=== PATIENT | female | born 1955 | race African-American/Black ===

== ENCOUNTER 2016-08-03 14:19 | Emergency (ER) | payer OTHER ==
[~2016-08-03] VITALS: Ht 170.2 cm; Wt 59.0 kg
[~2016-08-03 14:19] MED LIST: ALPR1TAB6; ARIP10TA15; CELE400C10; CHOL10002 PO; DICL75TA; ESOM40CA47; ESZO3TAB; FERR325T72 PO; HYDR-2666 PO; LEVO150T5; LEVO500T38 PO; LIDO700A4 TD; LISI40TA; TRAZ100T12
[2016-08-03] MEDS ORDERED: IV NORMAL SALINE 1000ML BAG 1,000 ML IV SCH (15:14)
[2016-08-03] MEDS ORDERED: ONDANSETRON PF 4 MG/2 ML VIAL. IV ONE (15:15)
[2016-08-03] MEDS ORDERED: FAMOTIDINE 20 MG/2 ML VIAL IVP ONE (15:15)
[2016-08-03] MEDS ORDERED: CONTRAST GIVEN MC PRN (15:45)
[2016-08-03] MEDS ORDERED: IOHEXOL 300 MG/ML 75 ML VIAL IV ONE (15:45)
--- NOTE | 2016-08-03 15:52 | PHYS DOC ---
Past Medical History Past Medical History: Arthritis, GERD, Hypertension, Other Additional Past Medical Histor: ULCERS, PERFRATED BOWEL; RA Past Surgical History: Colectomy Additional Past Surgical Histo: COLON RESCETION Smoking: Less than 1pk/day Alcohol Use: None Drug Use: None Adult General Chief Complaint Chief Complaint: MEDICATION REFILL HPI HPI Patient is a 60 year old female who presents with epigastric abdominal pain for 2 weeks. She reports nausea without vomiting and subjective fevers. She denies change in her bowels or urinary symptoms. She has a history of a perforated ulcer. She states that her current pain feels different from when she had the ulcer. She initially presented to the emergency department for refill of for [place], which she takes for her rheumatoid arthritis. She has been taking this for her abdominal pain without relief over the last 2 weeks. She has not been evaluated for the abdominal pain since its onset. Her PCP is Dr. Nina Dickson. Review of Systems Review of Systems Constitutional: Denies fever or chills. [] Eyes: Denies change in visual acuity, redness, or eye pain. [] HENT: Denies ear pain, nasal congestion or sore throat. [] Respiratory: Denies cough or shortness of breath. [] Cardiovascular: Denies chest pain, palpitations or edema. [] GI: Denies vomiting, bloody stools or diarrhea. Reports epigastric pain and nausea. : Denies dysuria, hematuria or urinary frequency. [] Musculoskeletal: Denies back pain or joint pain. [] Integument: Denies rash or skin lesions. [] Neurologic: Denies headache, focal weakness or sensory changes. [] Endocrine: Denies polyuria or polydipsia. [] Psych: Denies anxiety or depression. [] All systems reviewed and negative unless otherwise stated in the HPI. Current Medications Current Medications Current Medications Medications (Trade) Dose Ordered Sig/Yessica Start Time Stop Time Status Last Admin Dose Admin Famotidine (Pepcid) 20 mg 1X ONCE 08/03/16 15:15 08/03/16 15:22 DC 08/03/16 16:01 20 MG Info (Do NOT chart on this entry -- for MONITORING) 1 each PRN DAILY PRN 08/03/16 15:45 08/05/16 15:44 Iohexol (Omnipaque 300 Mg/ml) 75 ml 1X ONCE 08/03/16 15:45 08/03/16 15:46 DC Morphine Sulfate 4 mg 4 mg PRN Q15MIN PRN 08/03/16 15:15 08/04/16 15:14 08/03/16 17:35 4 MG Ondansetron HCl (Zofran) 4 mg 1X ONCE 08/03/16 15:15 08/03/16 15:22 DC 08/03/16 16:01 4 MG Potassium Chloride (Klor-Con) 40 meq 1X ONCE 08/03/16 17:00 08/03/16 17:01 DC 08/03/16 17:34 40 MEQ Sodium Chloride (Iv Sodium Chloride 0.9% 1000ml Bag) 1,000 ml @ 100 mls/hr Q10H 08/03/16 15:14 08/04/16 01:13 08/03/16 16:01 100 MLS/HR Allergies Allergies Allergies Coded Allergies Type Severity Reaction Last Updated Verified No Known Drug Allergies 12/25/14 No Physical Exam Physical Exam Constitutional: Well developed, well nourished, no acute distress, non-toxic appearance. [] HENT: Normocephalic, atraumatic, oropharynx moist. [] Eyes: PERRLA, EOMI, conjunctiva normal, no discharge. [] Neck: Normal range of motion, no tenderness, supple, no stridor. [] Cardiovascular: Heart rate regular rhythm, no murmur. [] Lungs & Thorax: Bilateral breath sounds clear to auscultation without wheezes, rales, or rhonchi. [] Abdomen: Bowel sounds normal, soft, epigastric tenderness, no masses, no pulsatile masses. [] Skin: Warm, dry, no erythema, no rash. [] Extremities: No tenderness, ROM intact, no edema. Distal pulses equal bilaterally. [] Neurologic: Alert and oriented X 3, normal motor function, normal sensory function, no focal deficits noted. [] Psychologic: Affect normal, judgement normal, mood normal. [] Current Patient Data Vital Signs Vital Signs Date Time Temp Pulse Resp B/P Pulse Ox O2 Delivery O2 Flow Rate FiO2 08/03/16 17:21 58 18 196/91 95 08/03/16 14:50 98.5 Room Air 98.5 Lab Values Laboratory Tests Test 08/03/16 16:00 08/03/16 16:40 White Blood Count 10.1x10^3/uL (4.0-11.0) Red Blood Count 4.31x10^6/uL (3.50-5.40) Hemoglobin 9.7g/dL (12.0-15.5) L Hematocrit 31.0% (36.0-47.0) L Mean Corpuscular Volume 72fL (79-100) L Mean Corpuscular Hemoglobin 23pg (25-35) L Mean Corpuscular Hemoglobin Concent 31g/dL (31-37) Red Cell Distribution Width 18.3% (11.5-14.5) H Platelet Count 360x10^3/uL (140-400) Neutrophils (%) (Auto) 69% (31-73) Lymphocytes (%) (Auto) 21% (24-48) L Monocytes (%) (Auto) 7% (0-9) Eosinophils (%) (Auto) 1% (0-3) Basophils (%) (Auto) 1% (0-3) Neutrophils # (Auto) 7.0x10^3uL (1.8-7.7) Lymphocytes # (Auto) 2.1x10^3/uL (1.0-4.8) Monocytes # (Auto) 0.7x10^3/uL (0.0-1.1) Eosinophils # (Auto) 0.1x10^3/uL (0.0-0.7) Basophils # (Auto) 0.1x10^3/uL (0.0-0.2) Platelet Estimate Adequate (ADEQUATE) Polychromasia Slight Hypochromasia Mod Anisocytosis Slight Microcytosis Mod Schistocytes Few Sodium Level 135mmol/L (136-145) L Potassium Level 2.9mmol/L (3.5-5.1) *L Chloride Level 97mmol/L (98-107) L Carbon Dioxide Level 28mmol/L (21-32) Anion Gap 10 (6-14) Blood Urea Nitrogen 9mg/dL (7-20) Creatinine 0.9mg/dL (0.6-1.0) Estimated GFR (Cockcroft-Gault) 77.8 BUN/Creatinine Ratio 10 (6-20) Glucose Level 96mg/dL (70-99) Calcium Level 9.8mg/dL (8.5-10.1) Total Bilirubin 0.4mg/dL (0.2-1.0) Aspartate Amino Transferase (AST) 8U/L (15-37) L Alanine Aminotransferase (ALT) 9U/L (14-59) L Alkaline Phosphatase 65U/L (46-116) Creatine Kinase 202U/L (26-192) H Creatine Kinase MB (Mass) 1.3ng/mL (0.0-3.6) Creatine Kinase MB Relative Index 0.6% (0-4) Troponin I Quantitative < 0.017ng/mL (0.000-0.055) Total Protein 8.2g/dL (6.4-8.2) Albumin 4.4g/dL (3.4-5.0) Albumin/Globulin Ratio 1.2 (1.0-1.7) Lipase 139U/L (73-393) Urine Collection Type Void Urine Color Yellow Urine Clarity Clear Urine pH 6.5 Urine Specific [place] 1.010 Urine Protein Negativemg/dL (NEG-TRACE) Urine Glucose (UA) Negativemg/dL (NEG) Urine Ketones (Stick) Negativemg/dL (NEG) Urine Blood Negative (NEG) Urine Nitrite Negative (NEG) Urine Bilirubin Negative (NEG) Urine Urobilinogen Dipstick 0.2mg/dL (0.2 mg/dL) Urine Leukocyte Esterase Small (NEG) Urine RBC 0/HPF (0-2) Urine WBC Occ/HPF (0-4) Urine Squamous Epithelial Cells Few/LPF Urine Bacteria 0/HPF (0-FEW) Urine Mucus Mod/LPF Laboratory Tests 08/03/16 16:00 Laboratory Tests 08/03/16 16:00 EKG EKG EKG at 1537. Heart rate 76 bpm. Normal sinus rhythm without acute ischemic changes or STEMI, as interpreted by Dr. Echevarria. Radiology/Procedures Radiology/Procedures REASON: epigastric pain, hx perforated ulcer PROCEDURE: ABD PELV W/ IV CONTRAST ONLY PROCEDURE CT of the abdomen and pelvis with contrast HISTORY Epigastric pain for 10 days TECHNIQUE After IV infusion of95 cc of Optiray-320, helical CT scanning of the abdomen and pelvis was performed.GI contrast was not administered. COMPARISON December 25, 2014 FINDINGS The liveer is homogeous in appearance and normal in size. The spleen is unremarkable and normal in size. The pancreas is homogeneous in appearance and no focal enlargement is seen. The gallbladder appears normal and no intra or extrahepatic biliary ductal dilatation is seen. No focal aneurysmal dilatation of the abdominal aorta is seen. No enlarged abdominal or pelvic lymphadenopathy is seen. No soft tissue mass is seen. No obstructive bowel pattern or bowel wall thickening or inflammatory change is seen. There is no free air. There is a trace of free fluid in the pelvis. There is mild pleural effusions bilaterally. There is minimal pericardial thickening versus a tiny pericardial effusion. Both kidneys are functioning and no hydronephrosis or renal mass or perinephric fluid collection is seen. The urinary bladder is collapsed and not well evaluated. A small caliber loop of bowel posterior to the cecum could be a normal appendix. The small left inguinal canal hernia now contains a knuckle of small bowel. No adrenal masses are seen. No osteolytic process is seen. IMPRESSION 1. Mild pleural effusions bilaterally. 2. Minimal pericardial thickening versus tiny pericardial effusion. 3. Small left inguinal canal hernia now contains a knuckle of small bowel. There is no CT evidence of incarceration or obstruction however clinical correlation suggested 4. Trace of free fluid the pelvis of uncertain etiology. Course & Med Decision Making Course & Med Decision Making Pertinent Labs and Imaging studies reviewed. (See chart for details) The patient is a 52-year-old female who presents with epigastric pain for 2 weeks. On exam, her abdomen is soft and nonsurgical with epigastric tenderness. Laboratory evaluation reveals hypokalemia without other significant abnormalities. CT of abdomen and pelvis shows a left inguinal hernia. On reexamination, the abdomen remains soft and nonsurgical with epigastric tenderness. There is no significant left inguinal hernia. The patient's pain improved with IV morphine, Zofran, Pepcid, and IV fluids. She was given oral potassium replacement for hypokalemia. She is discharged home with prescription for [place] and Protonix. She is given contact information for GI for follow-up. She is also instructed to follow-up with her PCP within the next week for recheck of her electrolytes. Return precautions were discussed. She verbalizes understanding and agrees with plan. Dragon Disclaimer Dragon Disclaimer This electronic medical record was generated, in whole or in part, using a voice recognition dictation system. Departure Departure Impression: Primary Impression: Abdominal pain Disposition: 01 HOME, SELF-CARE Condition: IMPROVED Referrals: NINA HAILE MD (PCP) ERIC SCHAEFER MD Patient Instructions: Abdominal Pain, [id number], Hypokalemia-Brief Additional Instructions: You were seen today for abdominal pain. Your labs showed low potassium levels, which were replaced in the emergency department. Please take the prescribed pain medication as directed. Do not drive or operate heavy machinery while taking pain medication. Please take the prescribed antacid medication daily. Please follow-up with your primary care doctor within the next week for recheck of your potassium levels. Please follow-up with the GI doctor listed below if your pain continues. Return to the emergency department if you have fever, bloody or black stools, vomiting, or other new or concerning symptoms. Scripts Hydrocodone/Apap 10-325 ([place] 10-325 Tablet)1 Each Tablet1 Tab PO PRN Q6HRS PRN PAIN #20 TAB Ref 0 Prov:KAREEN PRAJAPATI 08/03/16 Ondansetron (Zofran Odt)4 Mg Tab.rapdis1 Tab SL Q8HRS #10 TAB Prov:KAREEN PRAJAPATI 08/03/16 Problem Qualifiers Primary Impression: Abdominal pain Abdominal location: epigastric Qualified Code: R10.13 - Epigastric pain KAREEN PRAJAPATI Aug 03, 2016 15:51
--- NOTE | 2016-08-03 15:57 | EKG ---
[facility] [address] [place] [address] Test Date: 2016-08-03 Test Time: 15:37:17 Pat Name: KIAN ARENAS Department: Room: Gender: F Management Lead: : 1955 Requested By: KAREEN PRAJAPATI Order Number: [id number] Reading MD: Brando Nascimento Measurements Intervals [place] Rate: 76 P: 28 IN: 138 QRS: 42 QRSD: 96 T: 71 QT: 410 QTc: 466 Interpretive Statements SINUS RHYTHM NONSPECIFIC ST-T WAVE CHANGES. RI6.01 No previous ECG available for comparison Electronically Signed On 08-16-2016 9:58:22 [employer] by Brando Nascimento
[2016-08-03] MEDS: MORPHINE SULFATE 4 MG/ML DISP.SYRIN. IV/SQ PRN ×2 (16:01→17:35)
[2016-08-03 16:17] LABS: BASO # 0.1 x10^3/uL (0.0-0.2); BASO % 1 % (0-3); EOS % 1 % (0-3); HEMOGLOBIN 9.7 g/dL (12.0-15.5); LYMPH # 2.1 x10^3/uL (1.0-4.8); LYMPH % 21 % (24-48); MEAN CORPUSCULAR HEMOGLOBIN 23 pg (25-35); MEAN CORPUSCULAR HGB CONC 31 g/dL (31-37); MEAN CORPUSCULAR VOLUME 72 fL (79-100); MONO % 7 % (0-9); NEUT % 69 % (31-73); PLATELET COUNT 360 x10^3/uL (140-400); RED BLOOD COUNT 4.31 x10^6/uL (3.50-5.40); RED CELL DISTRIBUTION WIDTH 18.3 % (11.5-14.5); WHITE BLOOD COUNT 10.1 x10^3/uL (4.0-11.0)
[2016-08-03 16:40] LABS: ALBUMIN 4.4 g/dL (3.4-5.0); ALBUMIN/GLOBULIN RATIO 1.2 (1.0-1.7); CALCIUM 9.8 mg/dL (8.5-10.1); CREATININE 0.9 mg/dL (0.6-1.0); TOTAL PROTEIN 8.2 g/dL (6.4-8.2)
[2016-08-03 16:41] LABS: GFR 77.8; TOTAL BILIRUBIN 0.4 mg/dL (0.2-1.0)
[2016-08-03 16:42] LABS: ANISOCYTOSIS SLIGHT; HYPOCHROMIA MOD; MICROCYTOSIS MOD; PLT ESTIMATE ADEQUATE (ADEQUATE); POLYCHROMASIA SLIGHT; SCHISTOCYTES FEW
[2016-08-03 16:51] LABS: BILIRUBIN,URINE NEGATIVE (NEG); GLUCOSE,URINE NEGATIVE (NEG); NITRITE,URINE NEGATIVE (NEG); PH,URINE 6.5; PROTEIN,URINE NEGATIVE (NEG-TRACE); UROBILINOGEN,URINE 0.2 mg/dL (0.2 mg/dL)
[2016-08-03 16:53] LABS: POTASSIUM 2.9 mmol/L (3.5-5.1)
[2016-08-03 16:58] LABS: BACTERIA,URINE 0 /HPF (0-FEW); RBC,URINE 0 /HPF (0-2); SQUAMOUS EPITHELIAL CELL,UR FEW /LPF; WBC,URINE OCC /HPF (0-4)
[2016-08-03] MEDS ORDERED: POTASSIUM CHLORIDE 20 MEQ TABLET.ER. PO ONE (17:00)
[2016-08-03 17:02] LABS: CKMB INDEX 0.6 % (0-4); CKMB MASS 1.3 ng/mL (0.0-3.6)
[2016-08-03 17:21] VITALS: BP 196/91
--- NOTE | 2016-08-03 17:37 | RAD ---
PROCEDURE CT of the abdomen and pelvis with contrast HISTORY Epigastric pain for 10 days TECHNIQUE After IV infusion of95 cc of Optiray-320, helical CT scanning of the abdomen and pelvis was performed.GI contrast was not administered. COMPARISON December 25, 2014 FINDINGS The liveer is homogeous in appearance and normal in size. The spleen is unremarkable and normal in size. The pancreas is homogeneous in appearance and no focal enlargement is seen. The gallbladder appears normal and no intra or extrahepatic biliary ductal dilatation is seen. No focal aneurysmal dilatation of the abdominal aorta is seen. No enlarged abdominal or pelvic lymphadenopathy is seen. No soft tissue mass is seen. No obstructive bowel pattern or bowel wall thickening or inflammatory change is seen. There is no free air. There is a trace of free fluid in the pelvis. There is mild pleural effusions bilaterally. There is minimal pericardial thickening versus a tiny pericardial effusion. Both kidneys are functioning and no hydronephrosis or renal mass or perinephric fluid collection is seen. The urinary bladder is collapsed and not well evaluated. A small caliber loop of bowel posterior to the cecum could be a normal appendix. The small left inguinal canal hernia now contains a knuckle of small bowel. No adrenal masses are seen. No osteolytic process is seen. IMPRESSION 1. Mild pleural effusions bilaterally. 2. Minimal pericardial thickening versus tiny pericardial effusion. 3. Small left inguinal canal hernia now contains a knuckle of small bowel. There is no CT evidence of incarceration or obstruction however clinical correlation suggested 4. Trace of free fluid the pelvis of uncertain etiology. Electronically signed by: Neeraj Ambriz MD (Aug 03, 2016 17:36:39)
[2016-08-03] MEDS ORDERED: ONDA4TAB10 SL (18:07)
[2016-08-03] MEDS ORDERED: PANT40TA3 PO (18:07)
[2016-08-03] MEDS ORDERED: HYDR-971 PO (18:07)
[2016-08-03] MEDS ORDERED: HYDR-963 PO (18:15)
== END 2016-08-03 18:28 | disposition home or self-care (01) ==
LOC: ER 14:19
DX: R10.13 Epigastric pain (principal); E87.6 Hypokalemia; R11.0 Nausea; M06.9 Rheumatoid arthritis, unspecified; K21.9 Gastro-esophageal reflux disease without esophagitis; I10 Essential (primary) hypertension; F17.210 Nicotine dependence, cigarettes, uncomplicated; Z90.49 Acquired absence of other specified parts of digestive tract
CPT/HCPCS: 36415; 74177; 80053; 81001; 82553; 83690; 84484; 85007; 85027; 87086; 93005; 96361; 96374; 96375; 96376; 99285; J2270; J2405; J7030; S0028

== ENCOUNTER 2017-02-11 15:41 | Emergency (ER) | payer OTHER ==
[~2017-02-11] VITALS: Ht 167.6 cm; Wt 53.1 kg
[~2017-02-11 15:41] MED LIST changes: -HYDR-2666 PO; +HYDR-2758 PO; +HYDR-963 PO; +HYDR-971 PO; -LEVO500T38 PO; +LEVO500T59 PO; +ONDA4TAB10 SL; +PANT40TA3 PO; +SUCR1TAB35 PO
[2017-02-11] MEDS ORDERED: NALOXONE 0.4 MG/ML VIAL. IV ONE (16:00)
[2017-02-11] MEDS ORDERED: IV NORMAL SALINE 1000ML BAG 1,000 ML IV SCH (16:00)
--- NOTE | 2017-02-11 16:09 | PHYS DOC ---
Past Medical History Past Medical History: Arthritis, GERD, Hypertension, Other Additional Past Medical Histor: ULCERS, PERFRATED BOWEL; RA Past Surgical History: Colectomy Additional Past Surgical Histo: COLON RESCETION Alcohol Use: None Drug Use: None Adult General HPI HPI Patient is a 61 year old female brought in by ambulance secondary to concerns for an intentional overdose. Patient denies trying to hurt herself but she says she took some pills to help herself sleep patient was not clear as to what the medications were. Patient is answering questions appropriately, denies any pain. Review of Systems Review of Systems Constitutional: Denies fever or chills [] HENT: Denies nasal congestion or sore throat , denies neck pain Respiratory: Denies cough or shortness of breath [] Cardiovascular: No chest pain GI: Denies abdominal pain, nausea, vomiting, bloody stools or diarrhea [] : Denies dysuria or hematuria [] Musculoskeletal: Denies back pain or joint pain [] Integument: Denies rash or skin lesions [] Neurologic: Denies headache, focal weakness or sensory changes [] Psych: Denies HI or SI Current Medications Current Medications Current Medications Medications (Trade) Dose Ordered Sig/Yessica Start Time Stop Time Status Last Admin Dose Admin Naloxone HCl (Narcan) 0.4 mg 1X ONCE 02/11/17 16:00 02/11/17 16:01 DC 02/11/17 16:16 0.4 MG Sodium Chloride 1,000 ml @ 1,000 mls/hr Q1H 02/11/17 16:00 02/11/17 16:59 DC 02/11/17 16:18 1,000 MLS/HR Allergies Allergies Allergies Coded Allergies Type Severity Reaction Last Updated Verified No Known Drug Allergies 01/18/17 No Physical Exam Physical Exam Constitutional: Well developed, well nourished, mild distress, non-toxic appearance. [] HENT: Normocephalic, atraumatic, DMM, no oral exudates, nose normal. [] Eyes: PERRLA, EOMI, conjunctiva normal, no discharge. [] Neck: Normal range of motion, no tenderness, supple, no stridor. No LAD, no meningeal signs Cardiovascular:Heart rate regular rhythm, no murmur, equal pulses, normal perfusion Lungs & Thorax: Bilateral breath sounds clear to auscultation, tachypnea Abdomen: Bowel sounds normal, soft, no tenderness, no masses, no pulsatile masses. [] Skin: Warm, dry, no erythema, no rash. [] Back: No tenderness, no CVA tenderness. [] Extremities: No tenderness, no cyanosis, no DVT, ROM intact, no edema. [] Neurologic: Alert and oriented X 3, normal motor function, normal gross sensory function, no focal deficits noted. Patient transfers from [place] to bed on her own Psychologic: Affect normal, judgement normal, mood normal. [] Current Patient Data Vital Signs Vital Signs Date Time Temp Pulse Resp B/P (MAP) Pulse Ox O2 Delivery O2 Flow Rate FiO2 02/11/17 15:50 98.4 74 24 149/74 (99) 98 Room Air 98.4 Lab Values Laboratory Tests Test 02/11/17 16:20 White Blood Count 8.4 x10^3/uL (4.0-11.0) Red Blood Count 4.24 x10^6/uL (3.50-5.40) Hemoglobin 9.8 g/dL (12.0-15.5) L Hematocrit 32.0 % (36.0-47.0) L Mean Corpuscular Volume 76 fL (79-100) #L Mean Corpuscular Hemoglobin 23 pg (25-35) L Mean Corpuscular Hemoglobin Concent 31 g/dL (31-37) Red Cell Distribution Width 29.5 % (11.5-14.5) H Platelet Count 255 x10^3/uL (140-400) Neutrophils (%) (Auto) 59 % (31-73) Lymphocytes (%) (Auto) 32 % (24-48) Monocytes (%) (Auto) 7 % (0-9) Eosinophils (%) (Auto) 2 % (0-3) Basophils (%) (Auto) 1 % (0-3) Neutrophils # (Auto) 4.9 x10^3uL (1.8-7.7) Lymphocytes # (Auto) 2.6 x10^3/uL (1.0-4.8) Monocytes # (Auto) 0.6 x10^3/uL (0.0-1.1) Eosinophils # (Auto) 0.2 x10^3/uL (0.0-0.7) Basophils # (Auto) 0.1 x10^3/uL (0.0-0.2) Sodium Level 136 mmol/L (136-145) Potassium Level 4.0 mmol/L (3.5-5.1) Chloride Level 102 mmol/L (98-107) Carbon Dioxide Level 26 mmol/L (21-32) Anion Gap 8 (6-14) Blood Urea Nitrogen 16 mg/dL (7-20) Creatinine 0.8 mg/dL (0.6-1.0) Estimated GFR (Cockcroft-Gault) 88.8 BUN/Creatinine Ratio 20 (6-20) Glucose Level 97 mg/dL (70-99) Calcium Level 8.6 mg/dL (8.5-10.1) Magnesium Level 2.0 mg/dL (1.8-2.4) Total Bilirubin 0.2 mg/dL (0.2-1.0) Aspartate Amino Transferase (AST) 17 U/L (15-37) Alanine Aminotransferase (ALT) 21 U/L (14-59) Alkaline Phosphatase 52 U/L (46-116) Troponin I Quantitative < 0.017 ng/mL (0.000-0.055) Total Protein 6.7 g/dL (6.4-8.2) Albumin 3.1 g/dL (3.4-5.0) L Albumin/Globulin Ratio 0.9 (1.0-1.7) L Laboratory Tests 02/11/17 16:20 Laboratory Tests 02/11/17 16:20 EKG EKG 61 SR no stemi[] Radiology/Procedures Radiology/Procedures [] Course & Med Decision Making Course & Med Decision Making Pertinent Labs and Imaging studies reviewed. (See chart for details) 1702 patient is awake in no distress, has no complaints at this time. States she took 2 hydrocodone earlier. I discussed with the patient the need for monitoring for an extended period of time in the ER but the patient refuses to stay and wishes to leave AMA. I expect the patient's the risks and benefits; risks including or permanent disability, the patient repeated that back to me, patient voices understanding and still wishes to leave AMA. Patient has medical decision capacity and is not under duress when making this decision. Patient has been told she is welcome to change her mind at any time and return to the ED for further observation. Patient understands and agrees to follow-up as directed. [] Dragon Disclaimer Dragon Disclaimer This electronic medical record was generated, in whole or in part, using a voice recognition dictation system. Departure Departure Impression: Primary Impression: Overdose Additional Impressions: Left against medical advice Anemia Disposition: 07 AGAINST MEDICAL ADVICE Condition: IMPROVED Referrals: ARTURO HAILE MD (PCP) follow up for recheck in 1 day. If you change your mind about leaving AMA you may return to the ED at any time Patient Instructions: Anemia, Nonspecific-Brief, Discharge Against Medical Advice, Narcotic Overdose Problem Qualifiers Juan Daniel RUBIN MD Feb 11, 2017 16:09
--- NOTE | 2017-02-11 16:34 | RAD ---
CT scan of the head without contrast 02/11/2017 Clinical history: Overdose. Technique: Unenhanced, contiguous, 5 mm axial sections were obtained through the head. One or more of the following individualized dose reduction techniques were utilized for this study: 1. Automated exposure control. 2. Adjustment of the mA and/or kV according to patient size. 3. Use of iterative reconstruction technique. Findings: Comparison study is dated 03/10/2016. The ventricles and sulci are within normal limits in size and configuration. No area of abnormal attenuation is involving the brain parenchyma. No extra-axial fluid collection is seen. No skull fracture is noted. Impression: Negative study.
[2017-02-11 16:45] LABS: BASO # 0.1 x10^3/uL (0.0-0.2); BASO % 1 % (0-3); EOS % 2 % (0-3); HEMOGLOBIN 9.8 g/dL (12.0-15.5); LYMPH # 2.6 x10^3/uL (1.0-4.8); LYMPH % 32 % (24-48); MEAN CORPUSCULAR HEMOGLOBIN 23 pg (25-35); MEAN CORPUSCULAR HGB CONC 31 g/dL (31-37); MEAN CORPUSCULAR VOLUME 76 fL (79-100); MONO % 7 % (0-9); NEUT % 59 % (31-73); PLATELET COUNT 255 x10^3/uL (140-400); RED BLOOD COUNT 4.24 x10^6/uL (3.50-5.40); RED CELL DISTRIBUTION WIDTH 29.5 % (11.5-14.5); WHITE BLOOD COUNT 8.4 x10^3/uL (4.0-11.0)
[2017-02-11 16:46] LABS: CALCIUM 8.6 mg/dL (8.5-10.1); CREATININE 0.8 mg/dL (0.6-1.0); GFR 88.8
--- NOTE | 2017-02-11 16:52 | RAD ---
AP portable chest radiograph 02/11/2017 Clinical History: Overdose. History of recent lung biopsy. Metastatic disease throughout the lungs. An AP portable erect digital radiograph of the chest was obtained. Comparison study is dated 02/11/2017. The cardiac silhouette is borderline enlarged. The thoracic aorta is tortuous. Calcified hilar and mediastinal lymph nodes are again seen. Several masslike opacities are seen involving both lungs, unchanged. No acute pulmonary infiltrate is noted. No pneumothorax or pleural effusion is seen. The osseous structures are unchanged. Impression: No acute pulmonary infiltrate is seen.
[2017-02-11 16:53] LABS: ALBUMIN 3.1 g/dL (3.4-5.0); ALBUMIN/GLOBULIN RATIO 0.9 (1.0-1.7); TOTAL BILIRUBIN 0.2 mg/dL (0.2-1.0); TOTAL PROTEIN 6.7 g/dL (6.4-8.2)
[2017-02-11 17:00] VITALS: BP 170/91
[2017-02-11 17:01] LABS: INR 1.2 (0.8-1.1); PROTHROMBIN TIME PATIENT 14.9 SEC (11.7-14.0)
[2017-02-11 18:18] LABS: ANISOCYTOSIS MARKED; HYPOCHROMIA SLIGHT; PLT ESTIMATE ADEQUATE (ADEQUATE)
[2017-02-11 18:21] LABS: POIKILOCYTOSIS SLIGHT
--- NOTE | 2017-02-12 09:04 | EKG ---
[facility] [address] [place] [address] Test Date: 2017-02-11 Test Time: 16:18:36 Pat Name: KIAN ARENAS Department: Room: Gender: F Gimp Tacker: : 1955 Requested By: Juan Daniel RUBIN Order Number: [id number] Reading MD: Dominic Spangler Measurements Intervals [place] Rate: 61 P: 52 [place]: 172 QRS: 42 QRSD: 88 T: 56 QT: 414 QTc: 418 Interpretive Statements SINUS RHYTHM Electronically Signed On 02-15-2017 9:52:45 CDT by Dominic Spangler
== END 2017-02-11 17:16 | disposition left against medical advice (07) ==
LOC: ER 15:41
DX: T50.902A Poisoning by unspecified drugs, medicaments and biological substances, intentional self-harm, initial encounter (principal); D64.9 Anemia, unspecified; K21.9 Gastro-esophageal reflux disease without esophagitis; I10 Essential (primary) hypertension; Y92.89 Other specified places as the place of occurrence of the external cause
CPT/HCPCS: 36415; 70450; 71010; 80053; 82140; 83735; 84484; 85025; 85610; 93005; 96361; 96374; 99285; J2310; J7030

== ENCOUNTER 2017-05-06 06:45 | Emergency (ER) | payer OTHER ==
[~2017-05-06] VITALS: Ht 167.6 cm; Wt 47.2 kg
--- NOTE | 2017-05-06 07:18 | ED.ADGEN ---
Past Medical History Past Medical History: No Pertinent History Additional Past Medical Histor: ULCERS, PERFRATED BOWEL; RA Past Surgical History: No Surgical History Additional Past Surgical Histo: COLON RESCETION Alcohol Use: None Drug Use: None Physician Documentation Physician Documentation A CODE BLUE was called on this patient at 0643. On arrival, the patient was undergoing CPR. Staff had not obtained an initial rhythm strip prior to my arrival. CPR was continued. The patient's rhythm strip was initially interpreted as ventricular tachycardia and patient received defibrillation. On reevaluation of this however, it was determined that the patient did not have ventricular tachycardia but rather had a wide-complex tachycardia. The patient was intubated as outlined in the procedure note during the code. The patient was able to achieve return of spontaneous circulation. The patient's EKG postcode showed atrial fibrillation with rapid ventricular response. With supportive care the patient's heart rate continued to lower to 105-115 bpm and thus was not started on any rate lowering agents. The patient was transferred to ICU for further care. Indication: Respiratory failure Consent: Unable to give consent due to emergent nature. Medications Used: see nursing note Procedure: The patient was placed in the appropriate position. Intubation was performed under direct laryngoscopy with placement of a 7.5 endotracheal tube. Tube was secured at 21 cm at the lip. Initial confirmation of placement included bilateral breath sounds, tube fogging, adequate chest rise, adequate pulse oximetry reading. The patient tolerated the procedure well. Complications: none. EKG interpretation by me: Heart rate 141 bpm, atrial fibrillation with rapid ventricular response Final impression: 1. Cardiac arrest with return of spontaneous circulation 2. Acute respiratory failure KATIE EDWARDS MD May 06, 2017 07:18
--- NOTE | 2017-05-06 07:27 | PHYS DOC ---
Past Medical History Past Medical History: No Pertinent History Additional Past Medical Histor: ULCERS, PERFRATED BOWEL; RA Past Surgical History: No Surgical History Additional Past Surgical Histo: COLON RESCETION Alcohol Use: None Drug Use: None Adult General Chief Complaint Chief Complaint: ABDOMINAL PAIN [facility] HPI Patient is a 61 year old female presents to the emergency department with a history of vomiting twice in last 24 hours. She states she has an ulcer however denies blood in the emesis. Patient states her reglan is not working. She also states she is constipated and is out of her ducolax, and maalox. Patient states she had last BM yesterday as a small hard one. Patient states she is also out of her Hollywood in which she takes for her RA and needs to get a refill. Review of Systems Review of Systems Constitutional: Denies fever or chills [] Eyes: Denies change in visual acuity, redness, or eye pain [] HENT: Denies nasal congestion or sore throat [] Respiratory: Denies cough or shortness of breath [] Cardiovascular: No additional information not addressed in HPI [] GI: Denies abdominal pain, nausea, bloody stools or diarrhea. C/o vomiting and constipation : Denies dysuria or hematuria [] Musculoskeletal: Denies back pain or joint pain [] Integument: Denies rash or skin lesions [] Neurologic: Denies headache, focal weakness or sensory changes [] Endocrine: Denies polyuria or polydipsia [] C/o out of her Hollywood All other systems were reviewed and found to be within normal limits, except as documented in this note. Current Medications Current Medications Current Medications Medications (Trade) Dose Ordered Sig/Yessica Start Time Stop Time Status Last Admin Dose Admin Sucralfate (Carafate) 1 gm 1X ONCE 05/06/17 07:30 05/06/17 07:31 DC 05/06/17 07:35 1 GM Allergies Allergies Allergies Coded Allergies Type Severity Reaction Last Updated Verified No Known Drug Allergies 01/18/17 No Physical Exam Physical Exam Constitutional: Well developed, well nourished, no acute distress, non-toxic appearance. [] HENT: Normocephalic, atraumatic, bilateral external ears normal, oropharynx moist, no oral exudates, nose normal. [] Eyes: PERRLA, EOMI, conjunctiva normal, no discharge. [] Neck: Normal range of motion, no tenderness, supple, no stridor. [] Cardiovascular:Heart rate regular rhythm, no murmur [] Lungs & Thorax: Bilateral breath sounds clear to auscultation [] Abdomen: Bowel sounds normal, soft, no tenderness, no masses, no pulsatile masses. [] Skin: Warm, dry, no erythema, no rash. [] Extremities: No tenderness, no cyanosis, no clubbing, ROM intact, no edema. [] Neurologic: Alert and oriented X 3, normal motor function, normal sensory function, no focal deficits noted. [] Psychologic: Affect normal, judgement normal, mood normal. [] Current Patient Data Vital Signs Vital Signs Date Time Temp Pulse Resp B/P (MAP) Pulse Ox O2 Delivery O2 Flow Rate FiO2 05/06/17 08:16 148/88 (108) 05/06/17 07:36 79 18 97 Room Air 05/06/17 06:46 98.2 98.2 Lab Values Laboratory Tests Test 05/06/17 07:00 05/06/17 07:06 Urine Collection Type Void Urine Color Yellow Urine Clarity Cloudy Urine pH 7.5 Urine Specific Pooler 1.015 Urine Protein Negative mg/dL (NEG-TRACE) Urine Glucose (UA) Negative mg/dL (NEG) Urine Ketones (Stick) Negative mg/dL (NEG) Urine Blood Negative (NEG) Urine Nitrite Negative (NEG) Urine Bilirubin Negative (NEG) Urine Urobilinogen Dipstick 0.2 mg/dL (0.2 mg/dL) Urine Leukocyte Esterase Negative (NEG) Urine RBC 0 /HPF (0-2) Urine WBC Occ /HPF (0-4) Urine Squamous Epithelial Cells Few /LPF Urine Bacteria Few /HPF (0-FEW) Urine Mucus Slight /LPF White Blood Count 9.6 x10^3/uL (4.0-11.0) Red Blood Count 4.18 x10^6/uL (3.50-5.40) Hemoglobin 12.2 g/dL (12.0-15.5) Hematocrit 36.9 % (36.0-47.0) Mean Corpuscular Volume 88 fL (79-100) Mean Corpuscular Hemoglobin 29 pg (25-35) Mean Corpuscular Hemoglobin Concent 33 g/dL (31-37) Red Cell Distribution Width 17.6 % (11.5-14.5) H Platelet Count 253 x10^3/uL (140-400) Neutrophils (%) (Auto) 75 % (31-73) H Lymphocytes (%) (Auto) 18 % (24-48) L Monocytes (%) (Auto) 6 % (0-9) Eosinophils (%) (Auto) 1 % (0-3) Basophils (%) (Auto) 1 % (0-3) Neutrophils # (Auto) 7.2 x10^3uL (1.8-7.7) Lymphocytes # (Auto) 1.7 x10^3/uL (1.0-4.8) Monocytes # (Auto) 0.6 x10^3/uL (0.0-1.1) Eosinophils # (Auto) 0.1 x10^3/uL (0.0-0.7) Basophils # (Auto) 0.0 x10^3/uL (0.0-0.2) Sodium Level 139 mmol/L (136-145) Potassium Level 4.1 mmol/L (3.5-5.1) Chloride Level 103 mmol/L (98-107) Carbon Dioxide Level 28 mmol/L (21-32) Anion Gap 8 (6-14) Blood Urea Nitrogen 12 mg/dL (7-20) Creatinine 0.8 mg/dL (0.6-1.0) Estimated GFR (Cockcroft-Gault) 88.8 BUN/Creatinine Ratio 15 (6-20) Glucose Level 104 mg/dL (70-99) H Calcium Level 8.9 mg/dL (8.5-10.1) Total Bilirubin 0.2 mg/dL (0.2-1.0) Aspartate Amino Transferase (AST) 20 U/L (15-37) Alanine Aminotransferase (ALT) 30 U/L (14-59) Alkaline Phosphatase 68 U/L (46-116) Total Protein 7.4 g/dL (6.4-8.2) Albumin 3.5 g/dL (3.4-5.0) Albumin/Globulin Ratio 0.9 (1.0-1.7) L Laboratory Tests 05/06/17 07:06 Laboratory Tests 05/06/17 07:06 EKG EKG [] Radiology/Procedures Radiology/Procedures [] [address] [place] [address] IMAGING REPORT Signed PATIENT: KIAN ARENAS ACCOUNT: [id number] : 1955 LOCATION: ER AGE: 61 SEX: F EXAM STATUS: REG ER ORD. PHYSICIAN: ARAVIND HAYDEN APRN REASON: left abdominal pain with vomiting PROCEDURE: ACUTE ABDOMEN SERIES EXAM: Two view abdomen with one view chest HISTORY: Left abdominal pain, nausea and vomiting. COMPARISON: 05/06/2012. FINDINGS: A frontal view of the chest and supine/upright views of the abdomen are obtained. There is an airspace opacity superior to the right hilum and in the right upper lobe. Another nodular opacity projects along the right anterior 5th rib and. Other subpleural densities superiorly on the left measure up to 1.5 cm and are indeterminate. Hyperinflation suggests chronic obstructive pulmonary disease. Calcified mediastinal lymph nodes are likely secondary to old granulomatous disease. There is no pneumothorax or pleural effusion. The heart is not enlarged. There is no pneumoperitoneum. There are no distended small bowel loops or significant air-fluid levels. There is gas distally. Moderate bilateral hip osteoarthritis may have a superimposed inflammatory component given uniformity of joint space narrowing. IMPRESSION: 1. Patchy infiltrates versus pulmonary nodules. Correlate for active infection. Follow-up to resolution or CT are recommended if the diagnosis is unclear. 2. Correlate for chronic obstructive pulmonary disease. 3. No evidence of obstruction. DICTATED and SIGNED BY: BREA SMITH MD DATE: 05/06/17 0747 CC: ARTURO HAILE MD; ARAVIND HAYDEN APRN; NON,STAFF ~ Course & Med Decision Making Course & Med Decision Making Pertinent Labs and Imaging studies reviewed. (See chart for details) Explained to patient Hollywood will cause constipation therefore I am reluctant to provide her with a refill. K Tracs identified that the patient had 240 tablets of Hollywood 10 filled on 04/12 for a 30 day supply. She does have a primary care provider she may contact for further narcotic medications. Patient was provided with carafate here in the emergency department with patient requesting ensure. She did drink her ensure was able to keep the fluids down. CBC, CMP, UA normal Acute abdominal series completed with patient provided with results. Patient with no SOA or difficulty breathing , Abdomen did not reveal constipation or obstruction. Patient was provided with discharge instructions, treatment regimen and followup recommendation. Patient was recommended to followup with her PCP on Tuesday. Patient agrees with discharge instructions, treatment regimen and followup recommendations. I've spoken with the patient and/or caregivers. I've explained the patient's condition, diagnosis and treatment plan based on information available to me at this time. I've answered the patient's and/or caregivers questions and addressed any concerns. The patient and/or caregivers have a good understanding the patient's diagnosis, condition and treatment plan as can be expected at this point. Vital signs have been stabilized. The patient's condition is stable for discharge from the emergency department. The patient will pursue further outpatient evaluation with her primary care provider or other designated consulting physician as outlined in the discharge instructions. Patient and/or caregivers are agreeable to this plan of care and follow-up instructions have been explained in detail. The patient and/or caregivers have received these instructions in written format and expressed understanding of these discharge instructions. The patient and her caregivers are aware that if any significant change in condition or worsening of symptoms should prompt him to immediately return to this of the closest emergency department.~ If an emergent department is not readily available I would encourage him to call 911. [] Dragon Disclaimer Dragon Disclaimer This electronic medical record was generated, in whole or in part, using a voice recognition dictation system. Departure Departure Impression: Primary Impression: Abdominal pain Disposition: HOME, SELF-CARE Condition: STABLE Referrals: ARTURO HAILE MD (PCP) Patient Instructions: Abdominal Pain, [id number] Additional Instructions: Activity as tolerated Carafate as prescribed Avoid fried, greasy, fatty, foods Followup with your primary care provider for further pain medications Return to emergency department as needed for signs and symptoms that become worse Scripts Sucralfate (CARAFATE) 1 Gm/10 Ml Oral.susp 10 ML PO BID, #120 ML 1 Refill Prov: ARAVIND HAYDEN APRN 05/06/17 Problem Qualifiers Primary Impression: Abdominal pain Abdominal location: epigastric Qualified Codes: R10.13 - Epigastric pain ARAVIND HAYDEN APRN May 06, 2017 07:27
[2017-05-06] MEDS ORDERED: SUCRALFATE 1 GM/10 ML ORAL.SUSP. PO ONE (07:30)
[2017-05-06 07:42] LABS: BASO % 1 % (0-3); EOS % 1 % (0-3); HEMATOCRIT 36.9 % (36.0-47.0); HEMOGLOBIN 12.2 g/dL (12.0-15.5); LYMPH # 1.7 x10^3/uL (1.0-4.8); LYMPH % 18 % (24-48); MEAN CORPUSCULAR HEMOGLOBIN 29 pg (25-35); MEAN CORPUSCULAR HGB CONC 33 g/dL (31-37); MEAN CORPUSCULAR VOLUME 88 fL (79-100); MONO % 6 % (0-9); NEUT % 75 % (31-73); PLATELET COUNT 253 x10^3/uL (140-400); RED BLOOD COUNT 4.18 x10^6/uL (3.50-5.40); RED CELL DISTRIBUTION WIDTH 17.6 % (11.5-14.5); WHITE BLOOD COUNT 9.6 x10^3/uL (4.0-11.0)
[2017-05-06 07:52] LABS: CALCIUM 8.9 mg/dL (8.5-10.1); CREATININE 0.8 mg/dL (0.6-1.0); GFR 88.8; POTASSIUM 4.1 mmol/L (3.5-5.1)
[2017-05-06 07:53] LABS: BILIRUBIN,URINE NEGATIVE (NEG); GLUCOSE,URINE NEGATIVE (NEG); NITRITE,URINE NEGATIVE (NEG); PH,URINE 7.5; PROTEIN,URINE NEGATIVE (NEG-TRACE); UROBILINOGEN,URINE 0.2 mg/dL (0.2 mg/dL)
--- NOTE | 2017-05-06 07:56 | RAD ---
EXAM: Two view abdomen with one view chest HISTORY: Left abdominal pain, nausea and vomiting. COMPARISON: 05/06/2012. FINDINGS: A frontal view of the chest and supine/upright views of the abdomen are obtained. There is an airspace opacity superior to the right hilum and in the right upper lobe. Another nodular opacity projects along the right anterior 5th rib and. Other subpleural densities superiorly on the left measure up to 1.5 cm and are indeterminate. Hyperinflation suggests chronic obstructive pulmonary disease. Calcified mediastinal lymph nodes are likely secondary to old granulomatous disease. There is no pneumothorax or pleural effusion. The heart is not enlarged. There is no pneumoperitoneum. There are no distended small bowel loops or significant air-fluid levels. There is gas distally. Moderate bilateral hip osteoarthritis may have a superimposed inflammatory component given uniformity of joint space narrowing. IMPRESSION: 1. Patchy infiltrates versus pulmonary nodules. Correlate for active infection. Follow-up to resolution or CT are recommended if the diagnosis is unclear. 2. Correlate for chronic obstructive pulmonary disease. 3. No evidence of obstruction.
[2017-05-06 07:58] LABS: ALBUMIN 3.5 g/dL (3.4-5.0); ALBUMIN/GLOBULIN RATIO 0.9 (1.0-1.7); TOTAL BILIRUBIN 0.2 mg/dL (0.2-1.0); TOTAL PROTEIN 7.4 g/dL (6.4-8.2)
[2017-05-06 08:12] LABS: BACTERIA,URINE FEW /HPF (0-FEW); RBC,URINE 0 /HPF (0-2); WBC,URINE OCC /HPF (0-4)
[2017-05-06 08:13] LABS: SQUAMOUS EPITHELIAL CELL,UR FEW /LPF
[2017-05-06 08:16] VITALS: BP 148/88
[2017-05-06] MEDS ORDERED: SUCR1ORA5 PO (08:31)
== END 2017-05-06 08:40 | disposition home or self-care (01) ==
LOC: ER 06:45
DX: I46.9 Cardiac arrest, cause unspecified (principal); J96.00 Acute respiratory failure, unspecified whether with hypoxia or hypercapnia; R10.13 Epigastric pain; K59.00 Constipation, unspecified
CPT/HCPCS: 31500; 36415; 74022; 80053; 81001; 85025; 92950; 99285-25